=== PATIENT | female | born 1955 | race Caucasian/White ===

== ENCOUNTER → 2020-01-16 07:22 | Outpatient (CLI) | payer MEDICARE, BC, SELFPAY ==
--- NOTE | ~2020-01-16 | MM_ITS ---
EXAMINATION: MM screening [facility]eri BI w jose HISTORY: Screening mammogram TECHNIQUE: Craniocaudal and mediolateral oblique 3-D tomosynthesis images were obtained and synthetic 2-D images were generated. CAD analysis was submitted and interpreted. COMPARISON: 01/13/2019, 01/07/2018, 01/01/2017 bilateral digital screening mammogram examinations BREAST PARENCHYMAL COMPOSITION: There are scattered areas of fibroglandular density. FINDINGS: Stable mild fibroglandular asymmetry. Stable benign small circumscribed left axillary tail lymph node. There is no evidence of suspicious mass, calcification, or architectural distortion to crawley ggest malignancy in either breast. There has been no suspicious interval change. IMPRESSION: 1. No mammographic evidence of malignancy. 2. Recommend routine screening mammography in one year. BI-RADS Category 2: Benign finding(s). Reviewed, dictated and finalized at location A. 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
== END ==
PROVIDERS: PCP Family Medicine; Visit Provider Obstetrics & Gynecology
DX: Z12.31 Encounter for screening mammogram for malignant neoplasm of breast (principal)
CPT/HCPCS: 77063; 77067

== ENCOUNTER 2020-12-29 00:36 | Day surgery (SDC) | payer MEDICARE, BC, SELFPAY ==
[2020-12-15 14:05] VITALS: BMI 26.2
--- NOTE | 2020-12-28 19:13 | PM.HPGS ---
History of Present Illness History of Present Illness Consent: Risks, benefits, and alternatives have been discussed and questions answered. Patient agrees to proceed with procedure. Chief complaint: family hx of colon ca, hx of colon polyps Narrative: Kelsie Bryant is a 65 year old female here for colon cancer screening. She has a family hx of colon cancer Review of Systems Review of Systems: All systems reviewed & are unremarkable except as noted in HPI and below PMFSH Past Medical History Medical History Hypothyroidism Multiple sclerosis Surgical History Surgical History H/O colonoscopy Social History Social History Smoking status: Never smoker Alcohol intake: current Substance use: never Substance use type: does not use Living arrangements: with family Spiritual care concerns: No Meds Home Medications and Allergies Home Medications Medication Instructions Recorded Confirmed Type I-Theanine 400 mg PO DAILY 12/15/20 12/15/20 History Trubifidl 1 cap PO DAILY 12/15/20 12/15/20 History dylon 1 dose PO DAILY 12/15/20 12/15/20 History ashwagandha root extract 500 mg PO DAILY 12/15/20 12/15/20 History cholecalciferol (vitamin D3) 125 mcg PO DAILY 12/15/20 12/15/20 History [Vitamin D3] estradiol 1 patch TOPICAL 2XW 12/15/20 12/15/20 History hydroxocobalamin 1,000 mcg IM WEEKLY PRN 12/15/20 12/15/20 History mupirocin 1 applic TOPICAL [id number] 12/15/20 12/15/20 History progesterone micronized 100 mg PO HS 12/15/20 12/15/20 History testosterone micronized (bulk) See Rx Instructions .ROUTE .COMPLEX 12/15/20 12/15/20 History thyroid (pork) [[place] Thyroid] 90 mg PO DAILY 12/15/20 12/29/20 History Allergies Allergy/AdvReac Type Severity Reaction Status Date / Time latex Allergy Intermediate RASH, Verified 10/25/18 11:13 BURNING 1.IODINE DYE Allergy Severe rash Uncoded 12/15/20 14:07 Exam Resp: Auscultation: clear to auscultation bilaterally Cardio: Rate: regular rate Rhythm: regular rhythm GI: GI Palp: Yes Soft to palpation and No Tenderness to palpation present (GI) Assessment and Plan Assessment and plan (1) Colon cancer screening: Code(s): Z12.11 - Encounter for screening for malignant neoplasm of colon Status: Acute Assessment and Plan: Colonoscopy with possible biopsy or polypectomy or cautery or injection of substances.
[2020-12-29 09:24] VITALS: BP 117/75; PULSE 89; RESP 20; TEMP 36.1; O2SAT 97
[2020-12-29] MEDS: LACTATED RINGERS 1,000 ML 150 ML IV CONT (09:35)
--- NOTE | 2020-12-29 09:38 | P.PNAN_ITS ---
Anes - Initial Pre Proc Eval Procedure: Operation Date: 12/29/20 10:30 Proposed Procedures p Screening Colonoscopy - David Jimenez MD Date/Time: 12/29/20 09:38 Surgeon: David Jimenez MD Pre Op Diagnosis: family hx of colon ca, hx of colon polyps Patient Data Age: 65 Gender: F Height: 1.59 m Weight: 62.9 kg Last Vital Signs Temp 36.1 C L 12/29/20 09:24 Pulse 89 12/29/20 09:24 Resp 20 12/29/20 09:24 BP 117/75 12/29/20 09:24 Pulse Ox 97 12/29/20 09:24 Allergies Allergy/AdvReac Type Severity Reaction Status Date / Time latex Allergy Intermediate RASH, Verified 10/25/18 11:13 BURNING 1.IODINE DYE Allergy Severe rash Uncoded 12/15/20 14:07 Home Medications Medication Instructions Recorded Confirmed Type I-Theanine 400 mg PO DAILY 12/15/20 12/15/20 History Trubifidl 1 cap PO DAILY 12/15/20 12/15/20 History dylon 1 dose PO DAILY 12/15/20 12/15/20 History ashwagandha root extract 500 mg PO DAILY 12/15/20 12/15/20 History cholecalciferol (vitamin D3) 125 mcg PO DAILY 12/15/20 12/15/20 History [Vitamin D3] estradiol 1 patch TOPICAL 2XW 12/15/20 12/15/20 History hydroxocobalamin 1,000 mcg IM WEEKLY PRN 12/15/20 12/15/20 History mupirocin 1 applic TOPICAL [id number] 12/15/20 12/15/20 History progesterone micronized 100 mg PO HS 12/15/20 12/15/20 History testosterone micronized (bulk) See Rx Instructions .ROUTE .COMPLEX 12/15/20 12/15/20 History thyroid (pork) [[place] Thyroid] 90 mg PO DAILY 12/15/20 12/29/20 History Patient hx anesthesia problems: none Family hx anesthesia problems: none Results Review: All pre-operative results and documents have been reviewed as part of the pre-operative evaluation. [facility] Past Medical History Medical History (Updated 12/29/20 @ 09:39 by Angel López MD) Hypothyroidism Multiple sclerosis Surgical History Surgical History (Updated 12/29/20 @ 09:39 by Angel López MD) H/O colonoscopy Social History Social History Smoking status: Never smoker Alcohol intake: current Substance use: never Substance use type: does not use Living arrangements: with family Spiritual care concerns: No Anes - Eval Final PreProcedure Day of Procedure 12/29/20 09:38 Patient weight: normal Heart: regular rate and rhythm Lungs: clear to auscultation Airway: Mallampati scale class II Neurological: alert and oriented Last oral intake: >/= 8 hours ASA classification: II Emergent: no Anesthetic plan: proceed Anesthesia type and monitoring: general GIVS and standard monitoring Results Review: All pre-operative results and documents have been reviewed as part of the pre-operative evaluation. Informed Consent: The patient's anesthetic plan and its attendant risks and benefits were discussed with the patient/family/POA. Questions were solicited and answers provided to the satisfaction of the patient/family/POA.
[2020-12-29] MEDS: SIMETHICONE ORAL SUSPENSION 20 MG/0.3 ML 30 ML BOTTLE 0.6 ML IRRIGATION (10:40)
[2020-12-29 10:51] VITALS: BP 94/50; PULSE 75; RESP 21; O2SAT 96
[2020-12-29 11:01] VITALS: BP 119/74; PULSE 71; RESP 19; O2SAT 100
[2020-12-29 11:11] VITALS: BP 129/81; PULSE 62; RESP 17; O2SAT 100
== END 2020-12-29 11:17 | disposition home or self-care (01) ==
PROVIDERS: PCP Family Medicine; Visit Provider Internal Medicine Gastroenterology
PROC: 0DJD8ZZ Inspection of Lower Intestinal Tract, Via Natural or Artificial Opening Endoscopic (ICD-10-PCS; CPT 45378; principal; 2020-12-29 10:30)
DX: Z12.11 Encounter for screening for malignant neoplasm of colon (principal); Z80.0 Family history of malignant neoplasm of digestive organs; E03.9 Hypothyroidism, unspecified; G35 Multiple sclerosis
CPT/HCPCS: 45380; 88305; J2704; J7120

== ENCOUNTER → 2021-01-27 09:53 | Outpatient (CLI) | payer MEDICARE, BC, SELFPAY ==
--- NOTE | ~2021-01-27 | MM_ITS ---
EXAMINATION: MM screening neri BI w jose HISTORY: Screening mammogram TECHNIQUE: Craniocaudal and mediolateral oblique 3-D tomosynthesis images were obtained and synthetic 2-D images were generated. CAD analysis was submitted and interpreted. COMPARISON: 01/2020, 01/13/2019, 01/07/2018 bilateral screening mammogram examinations BREAST PARENCHYMAL COMPOSITION: There are scattered areas of fibroglandular density. FINDINGS: There is no evidence of suspicious mass, calcification, or architectural distortion to sugg est malignancy in either breast. There has been no suspicious interval change. IMPRESSION: 1. No mammographic evidence of malignancy. 2. Recommend routine screening mammography in one year. BI-RADS Category 1: Negative Reviewed, dictated and finalized at location A. 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
== END ==
PROVIDERS: PCP Family Medicine; Visit Provider Obstetrics & Gynecology
DX: Z12.31 Encounter for screening mammogram for malignant neoplasm of breast (principal)
CPT/HCPCS: 77063; 77067

== ENCOUNTER → 2021-05-24 10:56 | Outpatient (CLI) | payer MEDICARE, BC, SELFPAY ==
--- NOTE | ~2021-05-24 | DEXA_ITS ---
Bone Density Report Name: CLAUDIA BORJA Age: 65 Sex: Female Ethnicity: White Date of : 1955 Indication: monitoring treatment; height loss; prior fracture; postmenopausal Referring Provider: Cuauhtemoc, Lars Harrison Study: Bone densitometry was performed. Exam Date: May 24, 2021 Accession number: [id number] Bone Density: Region BMD T-score Z-score Classification AP Spine (L1-L4) 1.133 0.8 2.7 Normal Femoral Neck (Left) 0.749 -0.9 0.7 Normal Total Hip (Left) 1.032 0.7 2.1 Normal Femoral Neck (Right) 0.731 -1.1 0.6 Osteopenia Total Hip (Right) 0.975 0.3 1.6 Normal Total Hip Mean 1.004 0.5 1.9 Normal World Health Organization criteria for BMD impression classify patients as: Normal (T-score at or above -1.0), Osteopenia (T-score between -1.0 and -2.5), or Osteoporosis (T-score at or below -2.5). 10-year Fracture Risk: FRAX not reported because: Treated for osteoporosis Previous Exams: Region Exam Age BMD T-score BMD Change BMD Change Date g/cm2 vs Baseline vs Previous AP Spine(L1-L4) 05/24/2021 65 1.133 0.8 0.039* 0.039* 01/13/2019 63 1.095 0.4 Total Hip(Left) 05/24/2021 65 1.032 0.7 0.017 0.017 01/13/2019 63 1.014 0.6 Total Hip(Right) 05/24/2021 65 0.975 0.3 -0.011 -0.011 01/13/2019 63 0.986 0.4 *Denotes significance at 95% confidence level, LSC for AP Spine = 0.022 g/cm2, LSC for Total Hip = 0.027 g/cm2 Clinical Information Provided by Patient: Has had a low trauma fracture Is being treated for osteoporosis Has used the following medications: HRT (i.e. estrogen/hormone therapy) Patient maximum height was 63 Menopause Age: 50 No regular weight bearing exercise Does not regularly consume dairy products Drinks caffeinated beverages Onset of menses at age 10 Number of children 2 Impression: The patient has low bone mass, based on the Right Femoral Neck T-score. The patient has risk factors, including: previous fracture. No significant bone loss was observed. Discussion: PATIENT UNDER TREATMENT WITH NO SIGNIFICANT BMD LOSS SINCE LAST EXAM. In an untreated patient, BMD typically declines with age. A lack of decline or gain is usually a sign that treatment is efficacious and fracture risk is reduced. It is important to ask patients whether they are taking their medications and to encourage continued and appropriate compliance with their osteoporosis therap
== END ==
PROVIDERS: PCP Family Medicine; Visit Provider Obstetrics & Gynecology
DX: Z13.820 Encounter for screening for osteoporosis (principal); Z78.0 Asymptomatic menopausal state; M85.851 Other specified disorders of bone density and structure, right thigh
CPT/HCPCS: 77080

== ENCOUNTER → 2022-04-19 10:01 | Outpatient (CLI) | payer MEDICARE, BC, SELFPAY ==
--- NOTE | ~2022-04-19 | MM_ITS ---
EXAMINATION: MM screening [facility] BI w jose HISTORY: Screening mammogram TECHNIQUE: Craniocaudal and mediolateral oblique 3-D tomosynthesis images were obtained and synthetic 2-D images were generated. CAD analysis was submitted and interpreted. COMPARISON: 01/27/2021, 01/16/2020, 01/13/2019 BREAST PARENCHYMAL COMPOSITION: There are scattered areas of fibroglandular density. FINDINGS: No suspicious mass, calcification, or architectural distortion are identified in either marcio ast to suggest malignancy. There has been no suspicious interval change. IMPRESSION: 1. No mammographic evidence of malignancy. 2. Recommend routine screening mammography in one year. BI-RADS Category 1: Negative Reviewed, dictated and finalized at location A. 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
== END ==
PROVIDERS: PCP Family Medicine; Visit Provider Obstetrics & Gynecology
DX: Z12.31 Encounter for screening mammogram for malignant neoplasm of breast (principal)
CPT/HCPCS: 77063; 77067

== ENCOUNTER 2023-04-26 14:00 | Outpatient (CLI) | payer MEDICARE, BC, SELFPAY ==
--- NOTE | ~2023-04-26 | MM_ITS ---
EXAMINATION: MM screening neri BI w jose HISTORY: Screening mammogram TECHNIQUE: Craniocaudal and mediolateral oblique 3-D tomosynthesis images were obtained and synthetic 2-D images were generated. CAD analysis was submitted and interpreted. COMPARISON: 04/19/2022, 01/27/2021 bilateral screening mammogram examinations BREAST PARENCHYMAL COMPOSITION: There are scattered areas of fibroglandular density. FINDINGS: Stable mild fibroglandular asymmetry. There is no evidence of suspicious mass, calcificatio n, or architectural distortion to suggest malignancy in either breast. There has been no suspicious i nterval change. IMPRESSION: 1. No mammographic evidence of malignancy. 2. Recommend routine screening mammography in one year. BI-RADS Category 1: Negative Reviewed, dictated and finalized at location A.
== END 2023-04-26 14:01 ==
PROVIDERS: PCP Family Medicine; Visit Provider Family Medicine
DX: Z12.31 Encounter for screening mammogram for malignant neoplasm of breast (principal)
CPT/HCPCS: 77063; 77067

== ENCOUNTER 2024-07-14 13:37 | Outpatient (CLI) | payer MEDICARE, BC, SELFPAY ==
--- NOTE | ~2024-07-14 | MM_ITS ---
EXAMINATION: MM screening [facility] BI w jose INDICATION: Asymptomatic, referred for screening mammogram COMPARISON: 04/26/2023 through 01/07/2018 TECHNIQUE: Digital breast tomosynthesis craniocaudal and mediolateral oblique views of Both breasts w ere obtained with computer-aided detection to assist in interpretation of the study. FINDINGS: There are scattered areas of fibroglandular density. No focal dominant mass, architectural distortion, or suspicious microcalcifications are identified. There are no features to suggest malignancy. IMPRESSION: No evidence of malignancy in the breast. Recommend continued screening mammography BI-RADS 1, NEGATIVE Reviewed, dictated and finalized at location B.
== END 2024-07-14 13:38 | disposition home or self-care (01) ==
LOC: MICIMG 13:39
PROVIDERS: PCP Family Medicine; Visit Provider Family Medicine
DX: Z12.31 Encounter for screening mammogram for malignant neoplasm of breast (principal)
CPT/HCPCS: 77063; 77067

== ENCOUNTER 2024-12-18 07:53 | Outpatient (CLI) | payer MEDICARE, BC, SELFPAY ==
--- NOTE | ~2024-12-18 | DEXA_ITS ---
Bone Density Report Name: CLAUDIA BORJA Age: 69 Sex: Female Ethnicity: White Date of : 1955 Indication: postmenopausal; screening for osteoporosis; Referring Provider: Ac, Catalina Hummel Study: Bone densitometry was performed. Exam Date: December 18, 2024 Accession number: [id number] Bone Density: Region BMD T-score Z-score Classification AP Spine(L1-L4) 1.127 0.7 2.9 Normal Femoral Neck (Left) 0.729 -1.1 0.8 Osteopenia Total Hip (Left) 0.986 0.4 1.9 Normal Femoral Neck (Right) 0.706 -1.3 0.6 Osteopenia Total Hip (Right) 0.978 0.3 1.9 Normal Total Hip Mean 0.982 0.4 1.9 Normal World Health Organization criteria for BMD impression classify patients as: Normal (T-score at or above -1.0), Osteopenia (T-score between -1.0 and -2.5), or Osteoporosis (T-score at or below -2.5). 10-year Fracture Risk(1): Major Osteoporotic Fracture 9.7% Hip Fracture 1.3% Reported Risk Factors: [place] (), Neck BMD=0.706, BMI=27.4 (1) FRAX(R) Version 3.08. Fracture probability calculated for an untreated patient. Fracture probability may be lower if the patient has received treatment. Previous Exams: -- Region Exam Age BMD T-score BMD Change BMD Change Date g/cm2 vs Baseline vs Previous -- AP Spine (L1-L4) 12/18/2024 69 1.127 0.7 2.9%* -0.6% 05/24/2021 65 1.133 0.8 3.5%* 3.5%* 01/13/2019 63 1.095 0.4 Total Hip(Left) 12/18/2024 69 0.986 0.4 -2.8%* -4.5%* 05/24/2021 65 1.032 0.7 1.7% 1.7% 01/13/2019 63 1.014 0.6 Total Hip(Right) 12/18/2024 69 0.978 0.3 -0.8% 0.3% 05/24/2021 65 0.975 0.3 -1.1% -1.1% 01/13/2019 63 0.986 0.4 -- *Denotes significance at 95% confidence level, LSC for AP Spine = 0.022 g/cm2, LSC for Total Hip = 0.027 g/cm2 Clinical Information Provided by Patient: Has used the following medications: HRT (i.e. estrogen/hormone therapy), Vitamin D Patient maximum height was 62 Menopause Age: 50 No regular weight bearing exercise Drinks caffeinated beverages Onset of menses at age 10 Number of children 2 Missed period for more than 6 months in a row Impression: The patient has low bone mass, based on the Right Femoral Neck T-score. The patient has an estimated ten-year risk of hip fracture of 1.3% and an estimated ten-year risk of major fracture of 9.7%, based on the WHO FRAX algorithm. The BMD for the Total Hip(Left) decreased, changing by -4.5% since the last DXA exam. Discussion: BONE DENSITY IS LOW AT ONE OR MORE SKELETAL SITES. This patient's lowest T-score is low at one or more skeletal sites. It meets the World Health Organization's (WHO) criteria for ?low bone mass? (T-score between -1.0 and -2.5). The patient's 10-year risk of fracture as calculated by FRAX is less than the threshold where pharmacological therapy is recommended by the National Osteoporosis Foundation (NOF). However, all treatment decisions require clinical judgment and consideration of individual patient factors, including patient preferences, comorbidities, previous drug use, risk factors not captured in the FRAX model (e.g., frailty, falls, vitamin D deficiency, increased bone turnover, interval significant decline in bone density) and possible under or overestimation of fracture risk by FRAX. The patient should follow a healthful lifestyle (good nutrition with adequate calcium and vitamin D, and appropriate weight-bearing exercise). Follow-Up: Consider repeating this study in 2 years to reassess this patient's status, or sooner if there is some new clinical indication. Reported by: GERMAN on 12/18/2024 8:14:00 AM. Reviewed, dictated and finalized at location A.
== END 2024-12-18 07:54 | disposition home or self-care (01) ==
LOC: MICIMG 07:54
PROVIDERS: PCP Family Medicine; Visit Provider Obstetrics & Gynecology
DX: M85.89 Other specified disorders of bone density and structure, multiple sites (principal); Z78.0 Asymptomatic menopausal state; Z13.820 Encounter for screening for osteoporosis
CPT/HCPCS: 77080